=== PATIENT | female | born 1990 | race American Indian/Alaskan Native ===

== ENCOUNTER 2017-01-24 12:20 | Emergency (ER) | payer OTHER ==
[2017-01-24 13:08] LABS: Hemoglobin 9.8 gm/dl (10.1-14.3); Mean Corpuscular HGB Conc 33 % (30-34); Mean Corpuscular Hemoglobin 28 pg (28-32); Mean Corpuscular Volume 84 fl (79-97); Platelet Count 332 K/mm3 (140-440); Red Blood Count 3.55 M/mm3 (3.65-5.03); Red Cell Distribution Width 18.2 % (13.2-15.2); White Blood Count 5.1 K/mm3 (4.5-11.0)
[2017-01-24 13:09] LABS: Basophils % (Auto) 0.8 % (0.0-1.8); Diff Status Complete; Eosinophils % (Auto) 0.4 % (0.0-4.3)
[2017-01-24 13:40] LABS: Bilirubin,Urine NEG (Negative); Blood,Urine NEG (Negative); Ketones,Urine NEG (Negative); Leukocyte Esterase,Urine NEG (Negative); Mucus,Urine 1+ /HPF; Nitrite,Urine NEG (Negative); Protein,Urine <15 mg/dL mg/dL (Negative); Urobilinogen,Urine < 2.0 mg/dL (<2.0)
[2017-01-24] MEDS ORDERED: NACL 0.9% 1000 ML 1,000 ML IV ONE (14:46)
--- NOTE | 2017-01-24 16:01 | Ultrasound Report ---
FINAL REPORT EXAM: US PELVIC COMPLETE HISTORY: abnormal vag bleeding TECHNIQUE: Transabdominal and transvaginal pelvic ultrasound. Spectral Doppler analysis performed. PRIORS: None currently available. FINDINGS: Uterus: 10.6 x 4.6 x 6.5 cm. Large fibroid at the fundus measures 4.4 cm. Small fibroid in the upper posterior body measures 2.5 cm and 1 which is exophytic in the posterior midbody measures 2.6 cm. Endometrium: 17.8 mm. Trilaminar and heterogeneous. Thickened. No distinct lesions. Right ovary: 4.6 x 2.7 x 3.0 cm. Simple cyst measuring 2.5 cm. Normal spectral Doppler flow identified. Left ovary: 3.3 x 1.5 x 0.9 cm. Normal spectral Doppler flow noted. No adnexal lesions. Minimal free fluid in the pelvis. IMPRESSION: Uterine fibroids. Simple right ovarian cyst. Thickened heterogeneous endometrial stripe. Further workup recommended.
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
--- NOTE | 2017-01-24 16:02 | Ultrasound Report ---
FINAL REPORT EXAM: US TRANSVAGINAL HISTORY: Abnormal vaginal bleeding TECHNIQUE: Transabdominal and transvaginal pelvic ultrasound. Spectral Doppler analysis performed. PRIORS: None currently available. FINDINGS: Uterus: 10.6 x 4.6 x 6.5 cm. Large fibroid at the fundus measures 4.4 cm. Small fibroid in the upper posterior body measures 2.5 cm and 1 which is exophytic in the posterior midbody measures 2.6 cm. Endometrium: 17.8 mm. Trilaminar and heterogeneous. Thickened. No distinct lesions. Right ovary: 4.6 x 2.7 x 3.0 cm. Simple cyst measuring 2.5 cm. Normal spectral Doppler flow identified. Left ovary: 3.3 x 1.5 x 0.9 cm. Normal spectral Doppler flow noted. No adnexal lesions. Minimal free fluid in the pelvis. IMPRESSION: Uterine fibroids. Simple right ovarian cyst. Thickened heterogeneous endometrial stripe. Further workup recommended.
[2017-01-24 16:44] VITALS: BP 115/71
== END 2017-01-24 16:20 | disposition home or self-care (01) ==
LOC: ED 12:20
DX: N93.8 Other specified abnormal uterine and vaginal bleeding (principal); D25.9 Leiomyoma of uterus, unspecified; J45.909 Unspecified asthma, uncomplicated
CPT/HCPCS: 36415; 76830; 76856; 81001; 84702; 85025; 86850; 86900; 86901; 99284

== ENCOUNTER 2017-03-25 12:44 | Emergency (ER) | payer SELFPAY ==
[2017-03-25 13:04] VITALS: BP 125/76
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
== END 2017-03-25 15:00 | disposition left against medical advice (07) ==
LOC: ED 12:44
DX: Z76.0 Encounter for issue of repeat prescription (principal)
CPT/HCPCS: 99281

== ENCOUNTER 2017-08-04 03:51 | Emergency (ER) | payer SELFPAY ==
[2017-08-04] MEDS ORDERED: TORADOL IM ONE (09:25)
[2017-08-04] MEDS ORDERED: DELTASONE PO ONE (09:25)
[2017-08-04 10:02] VITALS: BP 124/69
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
== END 2017-08-04 11:06 | disposition home or self-care (01) ==
LOC: ED 03:51
DX: M25.512 Pain in left shoulder (principal); G89.29 Other chronic pain; M62.838 Other muscle spasm; J45.909 Unspecified asthma, uncomplicated; F17.200 Nicotine dependence, unspecified, uncomplicated; Z91.012 Allergy to eggs
CPT/HCPCS: 73030; 96372; 99283; J1885; J7512

== ENCOUNTER 2018-10-27 06:40 | Emergency (ER) | payer BC ==
[2018-10-27 06:56] VITALS: BP 138/83
[2018-10-27] MEDS ORDERED: IBUPROFEN PO ONE (07:43)
[2018-10-27] MEDS ORDERED: IBUPROFEN ONE (07:47)
[2018-10-27] MEDS ORDERED: DECADRON IV ONE (08:10)
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
[2018-10-27] MEDS ORDERED: DECADRON IM ONE (08:17)
== END 2018-10-27 09:00 | disposition home or self-care (01) ==
LOC: ED 06:40
DX: G89.29 Other chronic pain (principal); M54.9 Dorsalgia, unspecified; M25.512 Pain in left shoulder; J45.909 Unspecified asthma, uncomplicated; Z91.012 Allergy to eggs
CPT/HCPCS: 96372; 99282; J1100

== ENCOUNTER 2020-06-08 15:27 | Emergency (ER) | payer SELFPAY | END 2020-06-08 15:58 | LOC: ED 15:27 | DX: R07.9 Chest pain, unspecified (principal); Z53.21 Procedure and treatment not carried out due to patient leaving prior to being seen by health care provider ==

== ENCOUNTER 2021-03-28 22:26 | Emergency (ER) | payer OTHER ==
[2021-03-28 22:54] VITALS: BP 129/88
[2021-03-29] MEDS ORDERED: KETOROLAC 30 MG/1 ML INJ IV ONE (00:02)
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
[2021-03-29 01:37] LABS: Blood Urea Nitrogen 9 mg/dL (7-17); Calcium 8.6 mg/dL (8.4-10.2); Hemolysis Index 1
[2021-03-29 01:53] LABS: Bilirubin,Urine NEG (Negative); Blood,Urine NEG (Negative); Color,Urine Yellow (Yellow); Mucus,Urine FEW /HPF; Protein,Urine <15 mg/dL mg/dL (Negative); Urobilinogen,Urine < 2.0 mg/dL (<2.0)
[2021-03-29 01:56] LABS: HCG Qualitative,Urine Negative (Negative); WBC,Urine < 1.0 /HPF (0.0-6.0)
[2021-03-29 01:56] LABS: BUN/Creatinine Ratio 15
[2021-03-29 01:59] LABS: Basophils # (Auto) 0.1 K/mm3 (0.0-0.1); Basophils % (Auto) 1.1 % (0.0-1.8); Eosinophils % (Auto) 0.2 % (0.0-4.3); Hematocrit 29.4 % (30.3-42.9); Hemoglobin 9.3 gm/dl (10.1-14.3); Lymphocytes # (Auto) 1.8 K/mm3 (1.2-5.4); Lymphocytes % (Auto) 39.9 % (13.4-35.0); Mean Corpuscular HGB Conc 32 % (30-34); Mean Corpuscular Volume 87 fl (79-97); Monocytes # (Auto) 0.3 K/mm3 (0.0-0.8); Monocytes % (Auto) 7.5 % (0.0-7.3); Platelet Count 288 K/mm3 (140-440); Red Blood Count 3.38 M/mm3 (3.65-5.03); Red Cell Distribution Width 18.5 % (13.2-15.2)
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
== END 2021-03-29 04:52 | disposition home or self-care (01) ==
LOC: ED 22:26
DX: M54.9 Dorsalgia, unspecified (principal); R10.10 Upper abdominal pain, unspecified; J45.909 Unspecified asthma, uncomplicated; Z98.890 Other specified postprocedural states; Z91.012 Allergy to eggs; V43.52XA Car driver injured in collision with other type car in traffic accident, initial encounter; W22.11XA Striking against or struck by driver side automobile airbag, initial encounter; Y93.89 Activity, other specified; Y92.89 Other specified places as the place of occurrence of the external cause; Y99.8 Other external cause status
CPT/HCPCS: 36415; 71045; 72125; 74177; 80048; 81001; 81025; 85025; 96374; 99284; J1885; Q9967